=== PATIENT | male | born 1985 | race Caucasian/White ===

== ENCOUNTER 2022-04-29 12:12 | Emergency (ER) | payer OTHER, SELFPAY ==
[2022-04-29 12:35] VITALS: BP 124/78; PULSE 105; RESP 18; TEMP 37.1; O2SAT 97; BMI 23.5
[2022-04-29 12:44] VITALS: RESP 18; TEMP 37.1; O2SAT 97
--- NOTE | 2022-04-29 13:24 | CRLHL7_ITS ---
For Patients: As a result of the Century Cures Act, medical imaging exams and procedure reports are released immediately into your electronic medical record. You may view this report before your referring provider. If you have questions, please contact your health care provider. INDICATION: COVID TECHNIQUE: Chest 1 view COMPARISON: 08/09/2021 FINDINGS: Cardiovascular and mediastinum: Heart size and vasculature are normal in caliber and appearance. Lungs and pleural spaces: Lungs are clear. No sign of infiltrate or mass. No sign of pleural effusion. No pneumothorax. Bones and soft tissues: Postop changes left shoulder. IMPRESSION: No acute findings and no significant changes from the prior exam. Dictated by Clyde Malone MD @ 04/29/2022 1:59:10 PM (Electronically Signed)
--- NOTE | 2022-04-29 13:29 | ED_ITS ---
HPI - General Adult General Date Seen: 04/29/22 Chief complaint: Fever Stated complaint: Covid+ Time Seen by Provider: 04/29/22 13:05 History of Present Illness HPI narrative: 29-year-old male has been vaccinated and boosted for COVID nausea but no vomiting, body aches, low-grade fevers, cough. He called the [facility] and they told to come to the emergency department. He has not been short of breath have a history of pneumonia x2. He has been using some ibuprofen. No wheezing. He has had a couple of loose stools. Related Data Home Medications Medication Instructions Recorded Confirmed buspirone 10 mg tablet mg 04/29/22 dextroamphetamine-amphetamine ER 20 mg PO DAILY 04/29/22 04/29/22 20 mg 24hr capsule,extend release (Adderall XR) sertraline 100 mg tablet mg 04/29/22 Allergies Allergy/AdvReac Type Severity Reaction Status Date / Time cefaclor [From Ceclor] AdvReac Unknown Verified 04/29/22 12:43 Review of Systems Status of ROS: Reports: 10 or more systems reviewed and unremarkable except as noted in History and below PFSH PFS Medical History (Updated 04/29/22 @ 14:55 by Clyde Wong MD) COVID-19 IBS (irritable bowel syndrome) Pneumonia Swine flu Surgical History (Updated 04/29/22 @ 12:48 by Michelle Santos RN) H/O vasectomy Social History Smoking Status: Former smoker How often do you have a drink containing alcohol: 4 or more times a week AUDIT-C Alcohol total score: 4 Non-prescribed substance use: marijuana (any form) Exam Const: Vital Signs, click to edit/add: Vital Signs - 24 hr 04/29/22 12:35 04/29/22 12:44 04/29/22 13:30 Temperature 98.7 F 98.7 F Pulse Rate [Pulse Oximeter] 105 H 92 Respiratory Rate 18 18 Blood Pressure [Ri ght Upper Arm] 124/78 124/74 Pulse Oximetry 97 97 99 Documenting provider has reviewed patient's vital signs: yes Common normals: no apparent distress and oriented x3 General appearance: cooperative and well developed Orientation/consciousness: Yes awake, Yes oriented to person, Yes oriented to place and Yes oriented to time HENMT: Common normals: normocephalic, EAC's normal and TM's normal bilaterally Head and scalp: normal to inspection and normocephalic Face and sinus: sinuses nontender Nose: nares normal External auditory canal: EAC's normal Tympanic membrane: TM's normal bilaterally Mouth: oral and palatal mucosa normal Throat: posterior oropharynx normal Eye: Common normals: conjunctivae normal General eye: normal appearance of both eyes Conjunctiva: conjunctiva(e) normal Neck & C-Spine: Common normals: full ROM and no lymphadenopathy Resp: Common normals: normal respiratory effort and clear to auscultation bilaterally Effort & inspection: symmetric chest movement Auscultation: clear to auscultation bilaterally GI: Common normals: Normal to inspection, nondistended, normoactive bowel sounds present and soft to palpation Palpation: soft Extremity: Common normals: normal to inspection and no pedal edema Neuro: Common normals: oriented x3 Sensorium/orientation: awake, oriented to person, oriented to place and oriented to time Psych: Common normals: mental status grossly normal Skin: Common normals: no rashes or lesions noted General skin exam: no rashes or lesions noted Course Course Hospital Course: Patient seen and examined. IV is established and 1 L of normal saline is infused. He is given Zofran 4 mg IV and Toradol 30 mg IV. Labs and a chest x- ray are ordered. Reevaluation(s) Reevaluation #1: Labs and chest x-ray are all normal. He feels better with the above interventions. Vital Signs Vital signs: Initial Vital Signs Temperature 98.7 F 04/29/22 12:35 Temperature Source Temporal Artery Scan 04/29/22 12:35 Pulse Rate 105 H 04/29/22 12:35 Pulse Rhythm 04/29/22 12:35 Respiratory Rate 18 04/29/22 12:35 Blood Pressure 124/78 04/29/22 12:35 Blood Pressure Mean 93 04/29/22 12:35 Blood Pressure Position Sitting 04/29/22 12:35 Pulse Oximetry 97 04/29/22 12:35 Oxygen Delivery Method 04/29/22 12:35 Vital Signs Temperature 98.7 F 04/29/22 12:35 Pulse Rate 105 H 04/29/22 12:35 Respiratory Rate 18 04/29/22 12:35 Blood Pressure 124/78 04/29/22 12:35 Pulse Oximetry 97 04/29/22 12:35 Temperature 98.7 F 04/29/22 12:44 Pulse Rate 92 04/29/22 13:30 Respiratory Rate 18 04/29/22 12:44 Blood Pressure 124/74 04/29/22 13:30 Pulse Oximetry 99 04/29/22 13:30 Medical Decision Making MDM Narrative Medical decision making narrative: Assessment/Plan: 1. COVID-19 infection: Rest, fluids, Tylenol or ibuprofen for pain and fever. Follow-up with your PCP in 3-5 days if not improving. It is okay to skip Your Adderall on the days your not working. Lab Data Labs: Lab Results 04/29/22 04/29/22 Range/Units 13:59 13:59 WBC 5.85 (4.50-11.00) K/uL RBC 4.45 (4.30-5.90) m/uL Hgb 13.9 (13.5-17.5) gm/dL Hct 41.8 (37.0-53.0) % MCV 94 (80-100) fL MCH 31 (26-34) pg MCHC 33 (32-36) gm/dL RDW Coeff of Robert 12.4 (11.5-15.5) % Plt Count 247 (140-440) K/uL Neut % (Auto) 75.3 H (42.0-72.0) % Lymph % (Auto) 15.6 L (20-44) % [place] % (Auto) 8.4 (0.0-11.0) % Eos % (Auto) 0.2 (0.0-7.0) % Baso % (Auto) 0.2 (0.0-3.0) % Neut # (Auto) 4.40 (1.7-7.0) K/uL Lymph # (Auto) 0.90 (0.90-2.90) K/uL [place] # (Auto) 0.50 (0.00-0.90) K/UL Eos # (Auto) 0.01 (0.00-0.50) K/uL Baso # (Auto) 0.01 (0.00-0.30) K/uL Abs Immat Gran (auto) 0.02 (0.00-0.30) K/uL Sodium 137 (135-149) mmol/L Potassium 4.0 (3.6-5.1) mmol/L Chloride 101 (96-114) mmol/L Carbon Dioxide 25 (20-32) mmol/L BUN 16 (5-24) mg/dL Creatinine 0.9 (0.5-1.5) mg/dL Estimated Creat Clear 104.05 Glucose 100 (60-115) mg/dL Calcium 9.6 (8.4-10.6) mg/dL Discharge Plan Discharge Clinical Impression: COVID-19 Patient Disposition: Home, Self-Care Condition: Improved Additional Instructions: rest, fluids, Tylenol or ibuprofen for pain and fever, follow-up with Dr. Moss if not improved. It is okay to skip your Adderall if you are not going to work. Activity Level: No strenuous activity Discharge Diet: Regular Diet Detail: push fluids Prescriptions: No Action sertraline 100 mg tablet 0RF buspirone 10 mg tablet 0RF dextroamphetamine-amphetamine [Adderall XR] 20 mg capsule,extended release 24hr 20 mg PO DAILY 0RF Follow Up/Referrals: Mark Anthony Moss MD [Primary Care Provider] - Stand Alone [facility] Info Instructions
[2022-04-29 13:30] VITALS: BP 124/74; PULSE 92; O2SAT 99
[2022-04-29] MEDS: 0.9 % SODIUM CHLORIDE 1000 ml 1,000 ML IV (14:10)
[2022-04-29] MEDS: ONDANSETRON 2 MG/ML inj 4 MG IVP (14:11)
[2022-04-29] MEDS: KETOROLAC 30 MG/ML inj IVP (14:11)
[2022-04-29 14:23] LABS: Basophils Absolute Auto 0.01 K/uL (0.00-0.30); Basophils Percent Auto 0.2 % (0.0-3.0); Eosinophils Absolute Auto 0.01 K/uL (0.00-0.50); Eosinophils Percent Auto 0.2 % (0.0-7.0); Hematocrit 41.8 % (37.0-53.0); Hemoglobin* 13.9 gm/dL (13.5-17.5); Immature Granulocytes Abs Auto 0.02 K/uL (0.00-0.30); Lymphocytes Percent Auto 15.6 % (20-44); Mean Corpuscular HGB Conc 33 gm/dL (32-36); Mean Corpuscular Hemoglobin 31 pg (26-34); Mean Corpuscular Volume 94 fL (80-100); Monocytes Percent Auto 8.4 % (0.0-11.0); Neutrophils Percent Auto 75.3 % (42.0-72.0); Platelet Count* 247 K/uL (140-440); RDW Coefficient of Variation % 12.4 % (11.5-15.5); Red Blood Count 4.45 m/uL (4.30-5.90); White Blood Count* 5.85 K/uL (4.50-11.00)
[2022-04-29 14:36] LABS: Chloride* 101 mmol/L (96-114); Slide Review Reflex No; Sodium* 137 mmol/L (135-149)
[2022-04-29 14:39] LABS: Blood Urea Nitrogen* 16 mg/dL (5-24); Carbon Dioxide* 25 mmol/L (20-32); Creatinine* 0.9 mg/dL (0.5-1.5); Est. Creatinine Clearance* 104.05; Estimated Glomerular Filt Rate 112.11
[2022-04-29 14:40] LABS: Calcium* 9.6 mg/dL (8.4-10.6); Glucose* 100 mg/dL (60-115)
== END 2022-04-29 15:26 | disposition home or self-care (01) ==
PROVIDERS: Emergency Provider Family Medicine; PCP Family Medicine
DX: U07.1 COVID-19 (principal)
CPT/HCPCS: 36415; 71045; 80048; 85025; 96374; 96375; 99283; 99284; J1885; J2405; J7030